=== PATIENT | male | born 1990 | race Caucasian/White ===

== ENCOUNTER 2018-03-15 16:45 | Emergency (ER) | payer MEDICAID, OTHER ==
[~2018-03-15] VITALS: Ht 180.3 cm; Wt 56.8 kg
[~2018-03-15 16:45] MED LIST: CYCL-1 PO; PRED20TA PO
[2018-03-15] MEDS ORDERED: epiNEPHrine 1 mg/ml inj IM STA (17:02)
[2018-03-15] MEDS ORDERED: normal saline 1000ML IV soln IVB ONE (17:05)
[2018-03-15] MEDS ORDERED: methylPREDNISolone sod succ 125mg/2ml vial IV ONE (17:05)
[2018-03-15] MEDS ORDERED: epiNEPHrine 1 mg/ml inj IM ONE (17:05)
[2018-03-15] MEDS ORDERED: diphenhydrAMINE 50 mg/ml inj IV ONE (17:05)
[2018-03-15] MEDS ORDERED: EPIN0.3P3 IM (19:16)
[2018-03-15 19:23] VITALS: BP 102/60
== END 2018-03-15 19:25 | disposition home or self-care (01) ==
LOC: ER 16:45
DX: L53.8 Other specified erythematous conditions (principal); T78.05XA Anaphylactic reaction due to tree nuts and seeds, initial encounter; R22.0 Localized swelling, mass and lump, head; J45.909 Unspecified asthma, uncomplicated; F12.90 Cannabis use, unspecified, uncomplicated; F17.200 Nicotine dependence, unspecified, uncomplicated; Z88.6 Allergy status to analgesic agent; Z79.899 Other long term (current) drug therapy; Y92.9 Unspecified place or not applicable
CPT/HCPCS: 93005; 96372; 96374; 96375; 99291; J0171; J1200; J2930; J7030; 99284; 99285